=== PATIENT | female | born 1955 | race Caucasian/White ===

== ENCOUNTER 2020-07-17 02:23 | Inpatient (IN) ==
[2020-07-17 03:09] LABS: Basophils % 0.1 %; Eosinophils % 0.1 %; Hematocrit 46.6 % (35.3-44.9); Hemoglobin 14.9 g/dL (11.5-15.4); Immature Granulocytes % 0.4 % (0-4); Lymphocytes # 0.9 K/mcL (0.6-4.6); Lymphocytes % 7.5 %; Mean Corpuscular Hemoglobin 30.2 pg (28.0-33.3); Mean Corpuscular Volume 94.3 fL (83.0-100.0); Mean Platelet Volume 10.2 fL (9.4-12.4); Monocytes # 0.4 K/mcL (0.0-1.3); Monocytes % 3.3 %; Neutrophils # 11.2 K/mcL (1.6-8.9); Platelet Count 203 K/mcL (140-400); Red Blood Count 4.94 M/mcL (3.82-4.97); Segmented Neutrophils % 88.6 %; White Blood Count 12.6 K/mcL (4.3-11.1)
[2020-07-17 03:11] LABS: VBG HCO3 34 mEq/L (21-27); VBG PCO2 61 mmHg (41-51); VBG PH 7.35 pH Units (7.32-7.42); VBG PO2 64 mmHg (25-50)
[2020-07-17 03:31] LABS: BUN/Creatinine Ratio 19 (6-26); Blood Urea Nitrogen 11 mg/dL (8-23); Carbon Dioxide 33 mEq/L (23-29); Chloride 98 mEq/L (98-107); Creatine Kinase 68 Units/L (30-223); Ethanol < 10 mg/dL (Less than 10); Glucose 122 mg/dL (70-105); Osmolality,Calculated 289 (280-300); Sodium 139 mEq/L (136-145); eGFR For African Americans > 60 (> 60); eGFR For Non-African Americans > 60 (> 60)
[2020-07-17 03:32] LABS: Troponin I < 0.03 ng/mL (< 0.04)
[2020-07-17 03:58] LABS: Bacteria,Urine Few per hpf (None-Few); Bilirubin,Urine Negative (Negative); Blood,Urine Negative (Negative); Clarity,Urine Turbid (Clear); Color,Urine Light-Yellow (Yellow); Glucose,Urine (UA) Normal (Normal); Ketones,Urine Negative (Negative); Leukocyte Esterase,Urine Large (Negative); Mucus,Urine Few per lpf (None-Few); Nitrite,Urine Negative (Negative); PH,Urine 6.5 pH Units (5.0-8.0); Protein,Urine Negative (Neg-Trace); Specific Gravity,Urine 1.008 (1.010-1.025); Squamous Epithelial Cell,Urine Moderate per hpf (None-Few); Urobilinogen,Urine Normal (Normal); WBC,Urine 50-100 per hpf (0-3)
[2020-07-17 04:01] LABS: Amphetamine Screen,Urine Negative ng/mL (Cutoff=1000); Barbiturate Screen,Urine Negative ng/mL (Cutoff=200); Benzodiazepines Screen,Urine Negative ng/mL (Cutoff=200); Cannabinoid Screen,Urine Negative ng/mL (Cutoff = 50); Cocaine Screen,Urine Negative ng/mL (Cutoff= 300); Opiate Screen,Urine Negative ng/mL (Cutoff=300); Phencyclidine Screen,Urine Negative ng/mL (Cutoff=25)
[2020-07-17] MEDS ORDERED: 0.9 % Sodium Chloride 1,000 ML IVC ONE (04:13)
[2020-07-17] MEDS ORDERED: cefTRIAXone 1,000 MG in Water for inj. (sterile) 10 ML IVP ONE (04:13)
[2020-07-17] MEDS ORDERED: Naloxone 0.4 MG/ML INJ IVP PRN (05:58)
[2020-07-17] MEDS: cefTRIAXone 1,000 MG in Water for inj. (sterile) 10 ML IVP SCH (08:16)
[2020-07-17] MEDS: *HR* Heparin 5,000 UNIT/ML VIAL SQ SCH (17:46)
[2020-07-17] MEDS ORDERED: clonazePAM 1 MG TABLET PO SCH (21:00)
[2020-07-17] MEDS ORDERED: rOPINIRole 0.25 MG TABLET PO SCH (21:00)
[2020-07-17] MEDS: rOPINIRole 0.25 MG TABLET PO SCH (21:52)
[2020-07-17] MEDS: traZODone 50 MG TABLET PO SCH (21:52)
[2020-07-18] MEDS: *HR* Heparin 5,000 UNIT/ML VIAL SQ SCH ×2 (05:23→17:40)
[2020-07-18 06:49] LABS: Basophils % 0.3 %; Eosinophils # 0.3 K/mcL (0.0-0.6); Eosinophils % 4.4 %; Hematocrit 45.3 % (35.3-44.9); Hemoglobin 14.2 g/dL (11.5-15.4); Immature Granulocytes % 0.3 % (0-4); Lymphocytes # 1.1 K/mcL (0.6-4.6); Lymphocytes % 19.1 %; Mean Corpuscular HGB Conc 31.3 g/dL (31.6-35.5); Mean Corpuscular Hemoglobin 30.2 pg (28.0-33.3); Mean Corpuscular Volume 96.4 fL (83.0-100.0); Mean Platelet Volume 10.3 fL (9.4-12.4); Monocytes # 0.3 K/mcL (0.0-1.3); Monocytes % 5.5 %; Platelet Count 185 K/mcL (140-400); Red Cell Distribution Width 13.2 % (11.5-14.5); Segmented Neutrophils % 70.4 %
[2020-07-18 07:00] LABS: Neutrophils # 4.2 K/mcL (1.6-8.9); White Blood Count 5.9 K/mcL (4.3-11.1)
[2020-07-18 07:05] LABS: BUN/Creatinine Ratio 19 (6-26); Blood Urea Nitrogen 12 mg/dL (8-23); Calcium 8.6 mg/dL (8.6-10.3); Carbon Dioxide 32 mEq/L (23-29); Chloride 101 mEq/L (98-107); Glucose 117 mg/dL (70-105); Osmolality,Calculated 289 (280-300); Potassium 3.8 mEq/L (3.5-5.1); Sodium 139 mEq/L (136-145); eGFR For African Americans > 60 (> 60); eGFR For Non-African Americans > 60 (> 60)
[2020-07-18] MEDS: Aspirin Enteric Coated 81 MG Tablet PO SCH (10:21)
[2020-07-18] MEDS: cefTRIAXone 1,000 MG in Water for inj. (sterile) 10 ML IVP SCH (10:22)
[2020-07-18] MEDS: CARIPRAZINE HCL 6 MG PO SCH (10:27)
[2020-07-18] MEDS: rOPINIRole 0.25 MG TABLET PO SCH (20:22)
[2020-07-18] MEDS: traZODone 50 MG TABLET PO SCH (20:22)
[2020-07-18] MEDS: Clotrimazole Vag CRM 45 GM TUBE VG SCH (20:23)
[2020-07-18] MEDS: Nystatin POWDER 30 GM BOTTLE TP SCH (20:23)
[2020-07-18] MEDS: Nystatin Cream 15 GM TUBE TP SCH (20:23)
[2020-07-19 05:23] LABS: Basophils % 0.5 %; Eosinophils # 0.3 K/mcL (0.0-0.6); Eosinophils % 4.9 %; Hematocrit 44.9 % (35.3-44.9); Hemoglobin 14.3 g/dL (11.5-15.4); Immature Granulocytes % 0.4 % (0-4); Lymphocytes # 1.5 K/mcL (0.6-4.6); Lymphocytes % 27.9 %; Mean Corpuscular HGB Conc 31.8 g/dL (31.6-35.5); Mean Corpuscular Hemoglobin 31.1 pg (28.0-33.3); Mean Corpuscular Volume 97.6 fL (83.0-100.0); Mean Platelet Volume 10.4 fL (9.4-12.4); Monocytes # 0.4 K/mcL (0.0-1.3); Monocytes % 6.7 %; Neutrophils # 3.3 K/mcL (1.6-8.9); Platelet Count 180 K/mcL (140-400); Red Cell Distribution Width 13.2 % (11.5-14.5); Segmented Neutrophils % 59.6 %; White Blood Count 5.5 K/mcL (4.3-11.1)
[2020-07-19 05:44] LABS: BUN/Creatinine Ratio 21 (6-26); Blood Urea Nitrogen 13 mg/dL (8-23); Calcium 8.8 mg/dL (8.6-10.3); Carbon Dioxide 33 mEq/L (23-29); Chloride 102 mEq/L (98-107); Glucose 106 mg/dL (70-105); Osmolality,Calculated 293 (280-300); Potassium 3.5 mEq/L (3.5-5.1); Sodium 141 mEq/L (136-145); eGFR For African Americans > 60 (> 60); eGFR For Non-African Americans > 60 (> 60)
[2020-07-19] MEDS: *HR* Heparin 5,000 UNIT/ML VIAL SQ SCH ×2 (05:56→17:13)
[2020-07-19] MEDS: Aspirin Enteric Coated 81 MG Tablet PO SCH (08:04)
[2020-07-19] MEDS: cefTRIAXone 1,000 MG in Water for inj. (sterile) 10 ML IVP SCH (08:05)
[2020-07-19] MEDS: Nystatin POWDER 30 GM BOTTLE TP SCH ×2 (08:08→21:32)
[2020-07-19] MEDS: CARIPRAZINE HCL 6 MG PO SCH (08:09)
[2020-07-19] MEDS: Nystatin Cream 15 GM TUBE TP SCH ×2 (08:09→21:31)
[2020-07-19] MEDS ORDERED: Haloperidol Lactate 5 MG/ML VIAL IVP ONE (16:20)
[2020-07-19] MEDS: traZODone 50 MG TABLET PO SCH (21:30)
[2020-07-19] MEDS: rOPINIRole 0.25 MG TABLET PO SCH (21:30)
[2020-07-19] MEDS: Clotrimazole Vag CRM 45 GM TUBE VG SCH (21:32)
[2020-07-20] MEDS: *HR* Heparin 5,000 UNIT/ML VIAL SQ SCH ×2 (06:00→17:32)
[2020-07-20] MEDS: Nystatin Cream 15 GM TUBE TP SCH ×2 (07:52→20:27)
[2020-07-20] MEDS: Aspirin Enteric Coated 81 MG Tablet PO SCH (07:52)
[2020-07-20] MEDS: Nystatin POWDER 30 GM BOTTLE TP SCH ×2 (07:53→20:28)
[2020-07-20] MEDS: CARIPRAZINE HCL 6 MG PO SCH (07:54)
[2020-07-20] MEDS: traZODone 50 MG TABLET PO SCH (20:27)
[2020-07-20] MEDS: rOPINIRole 0.25 MG TABLET PO SCH (20:27)
[2020-07-20] MEDS: Clotrimazole Vag CRM 45 GM TUBE VG SCH (20:28)
[2020-07-21] MEDS: *HR* Heparin 5,000 UNIT/ML VIAL SQ SCH ×2 (05:20→17:29)
[2020-07-21] MEDS: Nystatin POWDER 30 GM BOTTLE TP SCH ×2 (09:46→20:56)
[2020-07-21] MEDS: Nystatin Cream 15 GM TUBE TP SCH ×2 (09:46→20:56)
[2020-07-21] MEDS: Aspirin Enteric Coated 81 MG Tablet PO SCH (09:46)
[2020-07-21] MEDS: CARIPRAZINE HCL 6 MG PO SCH (09:46)
[2020-07-21] MEDS ORDERED: clonazePAM 1 MG TABLET PO SCH (10:15)
[2020-07-21] MEDS: clonazePAM 1 MG TABLET PO SCH (20:53)
[2020-07-21] MEDS: rOPINIRole 0.25 MG TABLET PO SCH (20:53)
[2020-07-21] MEDS: traZODone 50 MG TABLET PO SCH (20:53)
[2020-07-21] MEDS: Clotrimazole Vag CRM 45 GM TUBE VG SCH (20:56)
[2020-07-21] MEDS ORDERED: CLEAR EYES NATURAL TEARS 15 ML BOTTLE BOTH EYES SCH (21:00)
[2020-07-22 04:13] VITALS: BP 123/82
[2020-07-22] MEDS: *HR* Heparin 5,000 UNIT/ML VIAL SQ SCH (05:26)
[2020-07-22] MEDS: Nystatin Cream 15 GM TUBE TP SCH (08:02)
[2020-07-22] MEDS: Nystatin POWDER 30 GM BOTTLE TP SCH (08:02)
[2020-07-22] MEDS: Aspirin Enteric Coated 81 MG Tablet PO SCH (08:02)
[2020-07-22] MEDS: clonazePAM 1 MG TABLET PO SCH (08:02)
[2020-07-22] MEDS ORDERED: CLEAR EYES NATURAL TEARS 15 ML BOTTLE BOTH EYES SCH (10:45)
[2020-07-22] MEDS ORDERED: QUEtiapine Fumarate 100 MG TABLET PO SCH (21:00)
== END 2020-07-22 15:04 | DRG 885 ==
LOC: EMEROOARM 02:23 → 3ANU 02:23
PROVIDERS: ADMIT Internal Medicine; ATTEND Internal Medicine